=== PATIENT | male | born 1985 | race Caucasian/White ===

== ENCOUNTER 2020-11-21 17:34 | Emergency (ER) | payer MEDICAID, OTHER ==
[~2020-11-21] VITALS: Ht 180.3 cm; Wt 80.0 kg
[~2020-11-21 17:34] MED LIST: LOSA25TA25 PO
[2020-11-21 17:38] VITALS: BP 166/117
--- NOTE | 2020-11-21 17:49 | NUR ---
URINE COLLECTED AND SENT TO LAB.
--- NOTE | 2020-11-21 17:51 | NUR ---
PATIENT BIB EMS WITH CHIEF C/O SI. PER EMS PATIENT HIT HIS HEAD AGAINST A WINDOW, DENIES LOC, LACERATION TO FOREHEAD. EMS REPORTS PATIENT STATES "VOICES TOLD ME TO DO IT." PATIENT STATES HE HASN'T SLEPT IN MONTHS AND ENDORSES VISUAL AND AUDITORY HALLUCINATIONS. PATIENT A&OX3 PER EMS, HE DOES NOT KNOW THE DATE/TIME. USED [facility] 2 DAYS AGO. PATIENT ASKED EMS "KILL ME." VSS EN ROUTE. UPON ASSESSMENT, PATIENT'S FOREHEAD WRAPPED IN GAUZE, BLEEDING CONTROLLED. PATIENT REPORTS HE HEARD VOICES THAT TOLD HIM TO PUT HIS HEAD THROUGH A WINDOW, DENIES PAIN BUT STATES "I JUST WANT TO GET MY HEAD CHECKED TO MAKE SURE I DIDN'T FRACTURE MY SKULL." PATIENT DENIES SI AT THIS TIME. VSS, SUICIDE PRECAUTIONS IN PLACE, PATIENT BELONGINGS TAKEN AND LOCKED IN CABINET, SITTER IN LINE OF SIGHT.
[2020-11-21] MEDS ORDERED: DIPH,PERTUSS(ACELL),TET VAC/PF 0.5 ML IM-VACC ONE ×2 (18:00→18:33)
[2020-11-21] MEDS ORDERED: LIDOCAINE-MPF 1%, 5ML ONE (18:33)
--- NOTE | 2020-11-21 20:06 | NUR ---
pt to be discharged, pt denies any SI at this time, pt denies any auditory or visual hallucinations, pt states he does not feel like harming himself or others
== END 2020-11-21 20:37 ==
LOC: ED 20:36
DX: S06.0X0A Concussion without loss of consciousness, initial encounter (principal); S01.81XA Laceration without foreign body of other part of head, initial encounter; I10 Essential (primary) hypertension; F17.200 Nicotine dependence, unspecified, uncomplicated; W22.8XXA Striking against or struck by other objects, initial encounter; Y93.89 Activity, other specified; Y92.009 Unspecified place in unspecified non-institutional (private) residence as the place of occurrence of the external cause; Y99.8 Other external cause status
CPT/HCPCS: 12051; 90471; 90715; 99284